=== PATIENT | male | born 1990 | race Caucasian/White ===

== ENCOUNTER 2020-07-04 23:31 | Emergency (ER) | payer OTHER ==
[~2020-07-04] VITALS: Ht 167.6 cm; Wt 63.6 kg
[2020-07-04 23:35] VITALS: BP 120/76
[2020-07-04] MEDS ORDERED: HYDR-2155 PO (23:56)
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
[2020-07-05] MEDS ORDERED: oxyCODONE IR 5 MG TABLET PO PRN
[2020-07-05] MEDS ORDERED: DIPH,PERTUSS(ACELL),TET VAC/PF 0.5 ML SYRINGE. VAX IM ONE (00:30)
[2020-07-05] MEDS ORDERED: IBUPROFEN 600 MG TABLET. PO ONE (00:30)
== END 2020-07-05 00:23 | disposition home or self-care (01) ==
LOC: ER 23:31
DX: T23.241A Burn of second degree of multiple right fingers (nail), including thumb, initial encounter (principal); X08.8XXA Exposure to other specified smoke, fire and flames, initial encounter; Y93.89 Activity, other specified; Y92.89 Other specified places as the place of occurrence of the external cause; Y99.8 Other external cause status
CPT/HCPCS: 16020; 90471; 90715; 99283

== ENCOUNTER 2020-09-02 14:30 | Emergency (ER) | payer SELFPAY ==
[~2020-09-02] VITALS: Ht 167.6 cm; Wt 65.9 kg
[~2020-09-02 14:30] MED LIST: HYDR-2155 PO
[2020-09-02 14:35] VITALS: BP 129/83
[2020-09-02] MEDS ORDERED: AMOX1TAB61 PO (15:29)
[2020-09-02] MEDS ORDERED: AMOXICILLIN/K CLAV 875/125MG TABLET. PO ONE (15:30)
--- NOTE | 2020-09-02 15:36 | PHYS DOC ---
Past History Past Medical History: No Pertinent History Past Surgical History: No Surgical History Alcohol Use: Occasionally General Adult EDM: Chief Complaint: ANIMAL BITE HPI: HPI: Patient is a 30-year-old male who presents with a cat bite to his right pinky. Patient States that his roommates cat bit him yesterday. Patient's pinky is red, swollen. Patient denies taking anything for discomfort. Patient states "I took the clindamycin today that was given to me from my roommate". Patient states that he is up-to-date on tetanus. Patient denies any health history. Review of Systems: Review of Systems: Constitutional: Denies fever or chills Eyes: Denies change in visual acuity HENT: Denies nasal congestion or sore throat Respiratory: Denies cough or shortness of breath Cardiovascular: Denies chest pain or edema GI: Denies abdominal pain, nausea, vomiting, bloody stools or diarrhea : Denies dysuria Musculoskeletal: Denies back pain or joint pain Integument: Reports cat bite to right pinky Neurologic: Denies headache, focal weakness or sensory changes Endocrine: Denies polyuria or polydipsia Lymphatic: Denies swollen glands Psychiatric: Denies depression or anxiety Allergies: Allergies: Allergies Coded Allergies Type Severity Reaction Last Updated Verified No Known Drug Allergies 07/04/20 No Physical Exam: PE: Constitutional: Well developed, well nourished, no acute distress, non-toxic appearance. [] HENT: Normocephalic, atraumatic, bilateral external ears normal, oropharynx moist, no oral exudates, nose normal. [] Eyes: PERRLA, EOMI, conjunctiva normal, no discharge. [] Neck: Normal range of motion, no tenderness, supple, no stridor. [] Cardiovascular:Heart rate regular rhythm, no murmur [] Lungs & Thorax: Bilateral breath sounds clear to auscultation [] Abdomen: Bowel sounds normal, soft, no tenderness, no masses, no pulsatile masses. [] Skin: Right, pinky, red, swollen Back: No tenderness, no CVA tenderness. [] Extremities: No tenderness, no cyanosis, no clubbing, ROM intact, no edema. [] Neurologic: Alert and oriented X 3, normal motor function, normal sensory function, no focal deficits noted. [] Psychologic: Affect normal, judgement normal, mood normal. [] Current Patient Data: Vital Signs: Vital Signs Date Time Temp Pulse Resp B/P (MAP) Pulse Ox O2 Delivery O2 Flow Rate FiO2 09/02/20 14:35 98.7 81 16 129/83 (98) 100 Room Air EKG: EKG: [] Radiology/Procedures: Radiology/Procedures: [] Heart Score: C/O Chest Pain: No Risk Factors: Risk Factors: DM, Current or recent (<one month) smoker, HTN, HLP, family history of CAD, obesity. Risk Scores: Score 0 - 3: 2.5% MACE over next 6 weeks - Discharge Home Score 4 - 6: 20.3% MACE over next 6 weeks - Admit for Clinical Observation Score 7 - 10: 72.7% MACE over next 6 weeks - Early Invasive Strategies Course & Med Decision Making: Course & Med Decision Making Pertinent Labs and Imaging studies reviewed. (See chart for details) Patient presents the emergency room after he was bit by his roommates cat yesterday. Patient's right pinky is red, swollen, tender. Patient states that his roommate had a clindamycin that he took 1 of today. Patient is up-to-date on tetanus. Patient is given a prescription for Augmentin. Educated patient on completing antibiotics as directed and in full. Patient is given 1 dose in the emergency room. I advised patient of signs of infection. Patient is to return to the emergency room with worsening symptoms or concerns. Dragon Disclaimer: Gilles Disclaimer: This electronic medical record was generated, in whole or in part, using a voice recognition dictation system. Departure Departure: Impression: Primary Impression: Cat bite of finger Qualified Codes: S61.259A - Open bite of unspecified finger without damage to nail, initial encounter; W55.01XA - Bitten by cat, initial encounter Disposition: HOME / SELF CARE / HOMELESS Condition: STABLE Referrals: PCP,NO (PCP) Patient Instructions: Animal Bite, [id number] Additional Instructions: You were seen in the emergency room after you were bit by your roommate's cat. You were given amoxicillin to treat infection. Please take as directed. Please follow-up with your PCP or return to the emergency room with worsening symptoms or concerns. You can take ibuprofen for discomfort. EMERGENCY DEPARTMENT GENERAL DISCHARGE INSTRUCTIONS Thank you for coming to [facility] (ED) today and trusting us with you care. We trust that you had a positivie experience in our Emergency Department. If you wish to speak to the department management, you may call the director at . YOUR FOLLOW UP INSTRUCTIONS ARE FOLLOWS: 1. Do you have a private Doctor? If you do not have a private doctor, please ask for a resource list of physicians or clinics that may be able to assist you with follow up care. 2. The Emergency Physician has interpreted your x-rays. The X-Ray specialist will also review them. If there is a change in the findings, you will be notified in 48 hours when at all possible. 3. A lab test or culture has been done, your results will be reviewed and you will be notified if you need a change in treatment. ADDITIONAL INSTRUCTIONS AND INFORMATION: 1. Your care today has been supervised by a physician who is specially trained in emergency care. Many problems require more than one evaluation for a complete diagnosis and treatment. We recommend that you schedule your follow up appointment as recommended to ensure complete treatment of you illness or injury. If you are unable to obtain follow up care and continue to have a problem, or if your condition worsens, we recommend that you return to the ED. 2. We are not able to safely determine your condition over the phone nor are we able to give sound medical advice over the phone. For these safety reasons, if you call for medical advice we will ask you to come to the ED for further evaluation. 3. If you have any questions regarding these discharge instructions please call the ED at [phone]. SAFETY INFORMATION: In the interest of safety, wellness, and injury prevention; we encourage you to wear your sealbelt, if you smoke; quite smoking, and we encourage family to use a protective helmet for bicycling and other sporting events that present an increased risk for head injury. IF YOUR SYMPTOMS WORSEN OR NEW SYMPTOMS DEVELOP, OR YOU HAVE CONCERNS ABOUT YOUR CONDITION; OR IF YOUR CONDITION WORSENS WHILE YOU ARE WAITING FOR YOUR FOLLOW UP APPOINTMENT; EITHER CONTACT YOUR PRIMARY CARE DOCTOR, THE PHYSICIAN WHOSE NAME AND NUMBER YOU WERE GIVEN, OR RETURN TO THE ED IMMEDIATELY. Scripts Amoxicillin/Potassium Clav (AUGMENTIN 875-125 TABLET) 1 Each Tablet 1 TAB PO BID for cat bite for 7 Days, #14 TAB 0 Refills Prov: MARTIN PORTILLO MANAGER BRIDGE 09/02/20 MARTIN PORTILLO APRN September 02, 2020 15:36
== END 2020-09-02 15:50 | disposition home or self-care (01) ==
LOC: ER 14:30
DX: S61.256A Open bite of right little finger without damage to nail, initial encounter (principal); W55.01XA Bitten by cat, initial encounter; Y93.89 Activity, other specified; Y92.89 Other specified places as the place of occurrence of the external cause; Y99.8 Other external cause status
CPT/HCPCS: 99283